=== PATIENT | female | born 1960 | race American Indian/Alaskan Native ===

== ENCOUNTER 2019-01-05 15:53 | Emergency (ER) | payer BC ==
[2019-01-05 16:03] VITALS: TEMP 97.8
[2019-01-05] MEDS ORDERED: Lidocaine 1% Inj (20ml) INFIL ONE (17:04)
[2019-01-05] MEDS ORDERED: Tdap Vaccine 0.5 ml Vial (10-64 yrs) IM ONE ×2 (17:04→17:11)
[2019-01-05] MEDS ORDERED: Lidocaine 2% MPF (5 ml) Inj ONE (17:10)
--- NOTE | 2019-01-05 17:36 | C.PDOC ---
History Of Present Illness 59 y/o female pt presents to the ER c/o accidentally got a toothpick got into her bare foot this morning. Pt tried to pull it out, but the toothpick broke off leaving a piece inside towards the heel. Pt is not sure how long the toothpick is. Pt has no hx of DM and has no other complaints or associated sx. Pt is not UTD with tetanus shot. Time Seen by Provider: 01/05/19 16:55 Chief Complaint (Nursing): Foreign Body History Per: Patient History/Exam Limitations: no limitations Onset/Duration Of Symptoms: Hrs Current Symptoms Are (Timing): Still Present Past Medical History Reviewed: Historical Data, Nursing Documentation, Vital Signs Vital Signs: Last Vital Signs Temp 97.8 F 01/05/19 16:01 Pulse 71 01/05/19 16:01 Resp 18 01/05/19 16:01 BP 127/78 01/05/19 16:01 Pulse Ox 100 01/05/19 16:01 - Medical History PMH: Hyperlipidemia Family History: States: No Known Family Hx - Social History Hx Alcohol Use: No Hx Substance Use: No - Immunization History Hx Tetanus Toxoid Vaccination: No Hx Influenza Vaccination: No Hx Pneumococcal Vaccination: No Review Of Systems Constitutional: Positive for: Other (toothpick stuck inside sole of right foot) Neurological: Negative for: Weakness, Numbness Physical Exam - Physical Exam Appears: Non-toxic, No Acute Distress Skin: Warm, Dry Cardiovascular: Rhythm Regular Respiratory: Normal Breath Sounds, No Rales, No Rhonchi, No Wheezing Extremity: Normal ROM (FROM), No Deformity, No Swelling, Other (Right foot: on medial lateral aspect of heel there is a puncture wound with no exit wound but there is something rough on the sole) Pulses: Right Dorsalis Pedis: Normal Neurological/Psych: Oriented x3, Normal Speech, Normal Cognition, Normal Motor, Normal Sensation ED Course And Treatment O2 Sat by Pulse Oximetry: 100 (RA) Pulse Ox Interpretation: Normal Medical Decision Making Medical Decision Making: Plans: -- Podiatry consult -- tetanus -- lidocaine -- tylenol Podiatry is notified to see pt podiatry saw pt, unable to remove fb. padded dressing applied to right foot and crutch instruction given.pt advised no weight bearing and to f/u in podiaty clinic on Monday. will give rx for augmentin Disposition Counseled Patient/Family Regarding: Diagnosis, Need For Followup, Rx Given - Disposition Referrals: [facility] [Outside] Disposition: HOME/ ROUTINE Disposition Time: 19:42 Condition: GOOD Additional Instructions: Keep dressing on foot and no weight bearing. Take Augmentin as prescribed. Foll ow up in podiatry clinic on Monday. Prescriptions: Amoxicillin/Clavulanate [Augmentin 875 MG-125 MG] 1 tab PO BID #14 tab Ibuprofen [Motrin] 600 mg PO TID #30 tab Instructions: Foreign Body in Skin (DC) Forms: [employer] (Estonian) - Clinical Impression Clinical Impression: Foreign body in foot - PA / PATIENT EDUCATOR / Resident Statement / has reviewed & agrees with the documentation as recorded. - Scribe Statement The provider has reviewed the documentation as recorded by the Rosa Gallegos Do All medical record entries made by the Scribe were at my direction and personally dictated by me. I have reviewed the chart and agree that the record accurately reflects my personal performance of the history, physical exam, medical decision making, and the department course for this patient. I have also personally directed, reviewed, and agree with the discharge instructions and disposition.
[2019-01-05] MEDS ORDERED: Lidocaine Hydrochloride 5 ML INJ ONE (17:47)
[2019-01-05] MEDS ORDERED: Amoxicillin-Clav 875-125 mg Tab PO STA (19:26)
[2019-01-05] MEDS ORDERED: Amoxicillin-Clav 875-125 mg Tab PO ONE (19:33)
[2019-01-05 19:58] VITALS: BP 126/85; PULSE 70; RESP 16; O2SAT 99
--- NOTE | 2019-01-06 11:58 | CP.PCM.CON ---
History of Present Illness - History of Present Illness History of Present Illness: Podiatry consult note for Dr. Shook, 59 y/0 female patient was seen and evaluated in the [facility] ED due to complaints of foreign body (toothpick) in plantar aspect of right foot. Patient states it occurred this morning while she was in her home. Patient states she felt something "go inside her foot" and she broke off the remaining piece of the toothpick. Patient states she walked all day on the foot, however, the pain progressively worsened. Patient denies any numbness or tingling to the area. Patient denies any other pedal complaints. Patient denies F/N/V/SOB/CP. Patient denies she is on any blood thinning medications. PMHx: HTN PSHX: denied by patient Medications: none Allergies: none Review of Systems - Review of Systems All systems: reviewed and no additional remarkable complaints except Review of Systems: as per HPI Past Patient History - Past Social History Smoking Status: Light Smoker < 10 Cigarettes Daily - PSYCHIATRIC Hx Substance Use: No - SURGICAL HISTORY Hx Surgeries: Yes Other/Comment: Left Oophorectomy - ANESTHESIA Hx Anesthesia: Yes Hx Anesthesia Reactions: No Meds Home Medications: Home Medication List Medication Instructions Recorded Confirmed Type Amoxicillin/Clavulanate [Augmentin 1 tab PO BID #14 tab 01/05/19 Rx 875 MG-125 MG] Ibuprofen [Motrin] 600 mg PO TID #30 tab 01/05/19 Rx Allergies/Adverse Reactions: Allergies Allergy/AdvReac Type Severity Reaction Status Date / Time No Known Allergies Allergy Verified 01/05/19 16:03 Physical Exam - Constitutional Appears: Well, Non-toxic, No Acute Distress - Head Exam Head Exam: ATRAUMATIC, NORMOCEPHALIC - Extremities Exam Additional comments: Right Lower Extremity Exam VASC: DP and PT 2/4 bilaterally, CFT less than 3 seconds X 5, TG warm to cool within normal limits, no edema noted NEURO: epicritic and protective sensations intact DERM: pin-point puncture wound noted to the medial aspect of the right plantar heel, with no exit wound, no erythema, no edema, no drainage, no signs of infection ORTHO: pain on palpation to the site with puncture wound - Neurological Exam Neurological exam: Alert, Oriented x3 - Psychiatric Exam Psychiatric exam: Normal Affect, Normal Mood Results - Vital Signs Recent Vital Signs: Last Vital Signs Temp 97.8 F 01/05/19 16:01 Pulse 70 01/05/19 19:57 Resp 16 01/05/19 19:57 BP 126/85 01/05/19 19:57 Pulse Ox 99 01/05/19 19:57 Assessment & Plan - Assessment and Plan (Free Text) Assessment: 59 y/o female patient seen and evaluated in ED for foreign body to right foot Plan: Patient seen and evaluated Plan discusses with Dr. Shook Chart, labs and vitals were reviewed- VSS, afebrile Patient thoroughly advised a bedside procedure to be attempted to remove the foreign body form the foot IF the bedside procedure was unsuccessfull, it was advised that patient may need to be taken to the OR at a later date to remove the foreign body Patient demonstrated verbal agreement A consent was completed, witnessed by nurse and signed by the patient that all attempts would be made to remove the FB, however, no guarantees would be given Patient right foot anesthesized with 8 cc of 1% Lidocaine plain, in a local block type fashion to the area of the puncture site Patient' foot was then cleaned and prepped with a chlohexadine stick A sterile #11 blade was utilized to make a 1 cm incision over the area where the toothpick was felt, a second 1 cm incision was created at 90 degrees to the first Multiple attempt were made by myself and the PA to remove the toothpick with all sterile instrumentation Foreign body could not be removed at this time in the Emergency Department Patient's incision sites were copiously flushed with betadine containing saline The incisions were kept open to allow foreign body to come to the surface of the foot Patient's foot was dressed with betadine, DSD, provided with a surgical shoe and crutches Patient taught how to use crutches so she can remain NWB to the right lower extremity Patient given Rx for Augmentin and Motrin for pain Patient to follow up in the [facility] Podiatry Clinic on Monday01/07/19 between 12- 4 PM for evaluation Patient advised to change dressing is strike through noted Patient advised to return to clinic if any signs or symptoms of infection noted All patient questions were answered to satisfaction Thank you for the consult - Date & Time Date: 01/07/19 Time: 07:04
== END 2019-01-05 19:57 | disposition home or self-care (01) ==
LOC: C.ER 15:53
DX: S90.851A Superficial foreign body, right foot, initial encounter (principal); W45.8XXA Other foreign body or object entering through skin, initial encounter; Z23 Encounter for immunization